=== PATIENT | male | born 1960 | race Caucasian/White ===

== ENCOUNTER 2023-01-21 05:24 | Day surgery (SDC) | payer OTHER ==
[2023-01-15 16:13] LABS: BASOPHILS % (AUTO) 0.5 % (0-1); EOSINOPHILS # (AUTO) 0.1 X10'3 (0-0.9); EOSINOPHILS % (AUTO) 0.9 % (0-6); LYMPHOCYTES # (AUTO) 1.6 X10'3 (1.1-4.8); LYMPHOCYTES % (AUTO) 27.6 % (21-51); MEAN CORPUSCULAR HEMOGLOBIN 28.1 PG (27.0-31.0); MEAN CORPUSCULAR HGB CONC 34.1 g/dL (33.0-36.5); MEAN CORPUSCULAR VOLUME 82.6 FL (78-98); MEAN PLATELET VOLUME 9.1 FL (7.4-10.4); MONOCYTES # (AUTO) 0.6 X10'3 (0-0.9); MONOCYTES % (AUTO) 10.2 % (2-12); NEUTROPHILS # (AUTO) 3.6 X10'3 (1.8-7.7); NEUTROPHILS % (AUTO) 60.8 % (42-75); PRE OP HEMATOCRIT 41.2 % (42.0-52.0); PRE OP PLATELET COUNT 207 X10'3 (140-440); PRE OP WHITE BLOOD COUNT 5.9 10'3 (4.8-10.8); RED BLOOD COUNT 4.99 X10'6 (4.70-6.10); RED CELL DISTRIBUTION WIDTH 14.1 % (11.5-14.5)
[2023-01-15 16:24] LABS: ALBUMIN 3.9 G/DL (3.4-5.0); ALBUMIN/GLOBULIN RATIO 1.1 (1.1-1.5); ALKALINE PHOSPHATASE 41 IU/L (46-116); BLOOD UREA NITROGEN 14 MG/DL (7-18); BUN/CREATININE RATIO 15.6 (10.0-20.0); CALCIUM 9.1 MG/DL (8.5-10.1); CHLORIDE 103 MMOL/L (99-107); PRE OP ALT 56 U/L (30-65); PRE OP ANION GAP 8 (8-16); PRE OP AST 33 U/L (10-37); PRE OP BILIRUB, TOTAL 0.2 MG/DL (0.0-1.0); PRE OP GLUCOSE 94 MG/DL (70-104); PRE OP POTASSIUM 3.7 MMOL/L (3.4-5.1); PRE OP SODIUM 137 MMOL/L (135-145); TOTAL CARBON DIOXIDE 25.9 MMOL/L (24-32); TOTAL PROTEIN 7.5 G/DL (6.4-8.2); eGFR 86 ML/MIN
[2023-01-21] VITALS (14 sets, daily range): BP systolic 130–178; BP diastolic 70–99; PULSE 74–96; RESP 12–16; TEMP 97.4; O2SAT 94–99
[~2023-01-21] VITALS: Ht 180.3 cm; Wt 129.3 kg
[~2023-01-21 05:24] MED LIST: OLME20TA23 PO; TRAM50TA2 PO; ringers solution, lacted 1,000 ML IV SCH
[2023-01-21] MEDS ORDERED: famotidine 20mg tablet PO ONE (05:30)
[2023-01-21] MEDS ORDERED: cefazolin 2gm/D5W 100mL 100 ML IV ONE (05:30)
[2023-01-21] MEDS ORDERED: BUPIVAcaine 2.5mg/ml inj 50ml vial (contains preservative) ONE (06:56)
[2023-01-21] MEDS ORDERED: propofol 10mg/ml 20ml vial IV ONE (07:10)
[2023-01-21] MEDS ORDERED: sevoflurane 250ml liquid IH ONE (07:10)
[2023-01-21] MEDS ORDERED: fentaNYL /PF 50mcg/ml 5ml ampule ONE (07:15)
[2023-01-21] MEDS ORDERED: MIDAZolam 1 MG/ML 5ML VIAL ONE (07:15)
[2023-01-21] MEDS ORDERED: ROPIVAcaine 0.5% (5mg/ml) 30ml vial ONE (07:17)
[2023-01-21] MEDS ORDERED: dexamethasone sod phosphate 4mg/ml inj. ONE (07:17)
[2023-01-21] MEDS ORDERED: ondansetron/PF 4mg/2ml inj ONE (07:45)
[2023-01-21] MEDS ORDERED: ePHEDrine 50MG/ML INJ. ONE (07:47)
[2023-01-21] MEDS ORDERED: hydrALAZINE 20mg/ml inj. IV PRN (08:10)
[2023-01-21] MEDS ORDERED: ondansetron/PF 4mg/2ml inj IV PRN (08:10)
[2023-01-21] MEDS ORDERED: labetalol 5mg/ml 20ml inj. IV PRN (08:10)
[2023-01-21] MEDS ORDERED: morphine 2 MG/ML inj. syringe IV PRN (08:10)
[2023-01-21] MEDS ORDERED: fentaNYL/PF 50MCG/1 ML 2ML syringe IV PRN ×2 (08:10)
[2023-01-21] MEDS ORDERED: ringers solution, lacted 1,000 ML IV SCH (08:10)
[2023-01-21] MEDS ORDERED: morphine 4 MG/ML inj SYRINge IV PRN (08:10)
[2023-01-21] MEDS ORDERED: LIDOcaine 2% (20mg/ml) 5ml vial ONE (08:16)
[2023-01-21] MEDS ORDERED: ROPIVAcaine 0.2%/PF PUMP/bolus 545 ML INTERSCALE SCH (08:25)
[2023-01-21] MEDS ORDERED: ROPIVAcaine 0.2% (10 MG/5 ML) BOLUS INJECTION INTERSCALE PRN (08:25)
[2023-01-21] MEDS ORDERED: hydrALAZINE 20mg/ml inj. IV ONE (08:33)
[2023-01-21] MEDS ORDERED: HYDROcodone/acetaminophen 10/325mg tab PO PRN (10:10)
== END 2023-01-21 11:30 | disposition home or self-care (01) ==
LOC: OR 05:24
PROVIDERS: ATTEND Orthopaedic Surgery
DX: M75.122 Complete rotator cuff tear or rupture of left shoulder, not specified as traumatic (principal); M75.22 Bicipital tendinitis, left shoulder; M19.012 Primary osteoarthritis, left shoulder; M75.52 Bursitis of left shoulder; E66.01 Morbid (severe) obesity due to excess calories; Z68.41 Body mass index [BMI] 40.0-44.9, adult; I10 Essential (primary) hypertension; G89.18 Other acute postprocedural pain; Z98.890 Other specified postprocedural states; Z98.42 Cataract extraction status, left eye; Z88.8 Allergy status to other drugs, medicaments and biological substances; Z79.899 Other long term (current) drug therapy; Z72.89 Other problems related to lifestyle
CPT/HCPCS: 29824; 29826; 29827; 36415; 64416; 80053; 82948; 85025; 93005; C1713; J0360; J0690; J1100; J2250; J2405; J2704; J2795; J3010; J3490; J7120; Z7506; Z7508; Z7512; A4618; A6253; A6449; A7000

== ENCOUNTER 2023-01-21 15:21 | Emergency (ER) | payer OTHER ==
[~2023-01-21] VITALS: Ht 180.3 cm; Wt 129.1 kg
[~2023-01-21 15:21] MED LIST changes: -OLME20TA23 PO; +OLME20TA69 PO; -ringers solution, lacted 1,000 ML IV SCH
[2023-01-21 15:49] VITALS: TEMP 98.7
[2023-01-21] MEDS ORDERED: iohexol 300mg/ml 100ml inj. ONE (16:01)
[2023-01-21 17:00] LABS: BASOPHILS % (AUTO) 0.1 % (0-1); EOSINOPHILS % (AUTO) 0 % (0-6); HEMATOCRIT 42.4 % (42.0-52.0); LYMPHOCYTES # (AUTO) 0.5 X10'3 (1.1-4.8); LYMPHOCYTES % (AUTO) 6.1 % (21-51); MEAN CORPUSCULAR HEMOGLOBIN 27.5 PG (27.0-31.0); MEAN CORPUSCULAR HGB CONC 32.9 g/dL (33.0-36.5); MEAN CORPUSCULAR VOLUME 83.7 FL (78-98); MONOCYTES # (AUTO) 0.1 X10'3 (0-0.9); MONOCYTES % (AUTO) 1.6 % (2-12); NEUTROPHILS # (AUTO) 8.1 X10'3 (1.8-7.7); NEUTROPHILS % (AUTO) 92.2 % (42-75); PLATELET COUNT 234 X10'3 (140-440); RED BLOOD COUNT 5.07 X10'6 (4.70-6.10); WHITE BLOOD COUNT 8.8 X10'3 (4.5-11.0)
[2023-01-21 17:12] LABS: APTT 28 SECONDS (22-32); PROTHROMBIN TIME 10.6 SECONDS (9.0-12.0)
[2023-01-21 21:00] VITALS: PULSE 99
[2023-01-21 21:39] VITALS: BP 147/65; RESP 16; O2SAT 95
== END 2023-01-21 21:42 | disposition home or self-care (01) ==
LOC: ER 15:22
DX: M96.830 Postprocedural hemorrhage of a musculoskeletal structure following a musculoskeletal system procedure (principal); Z48.00 Encounter for change or removal of nonsurgical wound dressing; Z88.8 Allergy status to other drugs, medicaments and biological substances; Z79.899 Other long term (current) drug therapy; Y83.8 Other surgical procedures as the cause of abnormal reaction of the patient, or of later complication, without mention of misadventure at the time of the procedure; Y79.3 Surgical instruments, materials and orthopedic devices (including sutures) associated with adverse incidents
CPT/HCPCS: 36415; 73200; 85025; 85610; 85730; 99284; J3490; J7030; 99285; A4565; A6253; A6402; A6449; Q9967